=== PATIENT | male | born 1985 | race Caucasian/White ===

== ENCOUNTER 2023-08-12 11:21 | Emergency (ER) | payer OTHER ==
[~2023-08-12] VITALS: Ht 182.9 cm; Wt 112.9 kg
[2023-08-12 11:29] VITALS: BP 151/98; PULSE 69; RESP 18; TEMP 98.4; O2SAT 97
[2023-08-12] MEDS ORDERED: LIDOCAINE MPF 1% 10 MG/ML VIAL INJ ONE (12:40)
[2023-08-12] MEDS ORDERED: BACI-418 TP (12:49)
[2023-08-12 13:29] VITALS: BP 145/88; PULSE 69; RESP 18; TEMP 98.4; O2SAT 98
== END 2023-08-12 13:29 | disposition home or self-care (01) ==
LOC: MED 11:21
DX: S61.511A Laceration without foreign body of right wrist, initial encounter (principal); Z79.2 Long term (current) use of antibiotics; W25.XXXA Contact with sharp glass, initial encounter; Y93.89 Activity, other specified; Y92.89 Other specified places as the place of occurrence of the external cause; Y99.0 Civilian activity done for income or pay
CPT/HCPCS: 12001; 90471; 90715; 99283; J2001

== ENCOUNTER 2023-08-14 13:35 | Emergency (ER) | payer OTHER ==
[~2023-08-14] VITALS: Ht 182.9 cm; Wt 65.3 kg
[~2023-08-14 13:35] MED LIST: BACI-418 TP
[2023-08-14 13:52] VITALS: BP 144/86; PULSE 65; RESP 14; TEMP 97.4; O2SAT 100
[2023-08-14] MEDS ORDERED: BACITRACIN OINT 500 UNITS/GM PKT TP ONE (14:40)
== END 2023-08-14 14:56 | disposition home or self-care (01) ==
LOC: MED 13:35
DX: M25.531 Pain in right wrist (principal); Z48.00 Encounter for change or removal of nonsurgical wound dressing; Z79.899 Other long term (current) drug therapy
CPT/HCPCS: 99282

== ENCOUNTER 2023-08-22 10:59 | Emergency (ER) | payer OTHER ==
[~2023-08-22] VITALS: Ht 182.9 cm; Wt 106.6 kg
[2023-08-22 11:57] VITALS: BP 128/74; PULSE 68; RESP 16; TEMP 98.8; O2SAT 98
[2023-08-22 13:10] VITALS: BP 128/74; PULSE 68; RESP 16; TEMP 98.8; O2SAT 98
== END 2023-08-22 13:10 | disposition home or self-care (01) ==
LOC: MED 10:59
DX: S61.411D Laceration without foreign body of right hand, subsequent encounter (principal); Z48.02 Encounter for removal of sutures; X58.XXXD Exposure to other specified factors, subsequent encounter
CPT/HCPCS: 99281